=== PATIENT | male | born 1970 | race Caucasian/White ===

== ENCOUNTER 2016-10-04 11:25 | Emergency (ER) | payer OTHER ==
[~2016-10-04] VITALS: Ht 177.8 cm; Wt 116.0 kg
[2016-10-04 11:30] VITALS: BP 142/101; PULSE 91; RESP 16; TEMP 98.4; O2SAT 97
[2016-10-04] MEDS ORDERED: METF500T PO (11:42)
[2016-10-04] MEDS ORDERED: CIAL2.5T PO (11:42)
[2016-10-04] MEDS ORDERED: GLIP5TAB8 PO (11:42)
[2016-10-04] MEDS ORDERED: CANA100T PO (11:42)
[2016-10-04] MEDS ORDERED: methylPREDNISolone SOD SUCC 125 MG/2 ML VIAL IM ONE (11:45)
[2016-10-04] MEDS ORDERED: diphenhydrAMINE HCL 50 MG/ML VIAL IM ONE (11:45)
[2016-10-04] MEDS ORDERED: BACT800T5 PO (11:50)
[2016-10-04] MEDS ORDERED: PRED20 PO (11:50)
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
== END 2016-10-04 12:05 | disposition home or self-care (01) ==
LOC: PHEFT 11:25
DX: T78.40XA Allergy, unspecified, initial encounter (principal); E78.00 Pure hypercholesterolemia, unspecified; E11.9 Type 2 diabetes mellitus without complications; W57.XXXA Bitten or stung by nonvenomous insect and other nonvenomous arthropods, initial encounter
CPT/HCPCS: 96372; 99282; J1200; J2930